=== PATIENT | male | born 1980 | race Caucasian/White ===

== ENCOUNTER 2021-05-16 19:23 | Emergency (ER) | payer OTHER, SELFPAY ==
[2021-05-16 19:38] VITALS: BP 111/54; PULSE 92; RESP 18; TEMP 37.1; O2SAT 97; BMI 35.2
[2021-05-16 20:21] LABS: IDNOW Serial# 08D9AD1C
[2021-05-16 20:22] LABS: Influenza A Positive (Negative); Influenza B2 Negative (Negative)
[2021-05-16 20:23] LABS: COVID-19 Test Negative (Negative); IDNOW Serial# 16C4AD1C
--- NOTE | 2021-05-16 21:23 | ED.GENADULT ---
HPI - General Adult General Chief complaint: General Medical Stated complaint: chills, fever, headache Time Seen by Provider: 05/16/21 21:14 Source: patient Mode of arrival: ambulatory Limitations: no limitations History of Present Illness HPI narrative: 40-year-old male presents to ED for 1 day of fever, headache, chills, and body aches. Patient states daughter also having similar symptoms. Patient denies any chest pain or shortness of breath. Patient had COVID 2 months ago. Related Data Previous Rx's Medication Instructions Recorded oseltamivir 75 mg capsule (Tamiflu) 75 mg PO BID 5 Days #10 cap 05/16/21 Allergies Allergy/AdvReac Type Severity Reaction Status Date / Time No Known Allergies Allergy Verified 05/16/21 19:42 Review of Systems Review of Systems: Headache, fever, and chills. Yes all other systems are reviewed and are negative [facility] Past Medical History Medical History (Updated 05/17/21 @ 00:00 by Background Daemon) Asthma Social History Social History Advance Directives: No Advance Directives Information Provided: Yes Physical Exam ED Vital Signs: Vital Signs - 24 hr 05/16/21 19:38 Temperature 98.8 F Pulse Rate 92 Respiratory Rate 18 Blood Pressure 111/54 L Pulse Oximetry 97 BMI result Body Mass Index 35.2 Const General: cooperative, healthy appearing, comfortable, no acute distress, well developed, alert, awake and Physically active Orientation/consciousness: patient oriented x3 HENMT Head: Yes normal to inspection, Yes No palpable skull fracture present, Yes normocephalic and Yes atraumatic Eyes General: appearance normal, both eyes and all related structures Neck Neck: Yes normal visual inspection, Yes full ROM, Yes no lymphadenopathy, Yes no meningeal signs, Yes trachea midline, Yes supple, No anterior neck swelling and No tender Chest Chest palpation & inspection: normal inspection of the chest and normal palpation of entire chest wall Resp Effort & Inspection: normal respiratory effort and able to speak in complete sentences Auscultation: clear to auscultation bilaterally Cardio Jugular venous distension: no JVD Heart sounds: S1 normal heart sound present and S2 normal heart sound present GI Inspection: Yes normal to inspection and No abdominal wall ecchymosis Palpation (GI): Soft to palpation, not firm, nontender, no guarding and not rigid General: No CVA tenderness and Yes no CVA tenderness Back/Spine/Pelvis Back: no CVA tenderness, No CVA tenderness and No back tenderness Skin General skin exam: no rashes or lesions noted and elasticity normal Neuro General: patient oriented x3, gait normal, no meningeal signs and CN's II-XI intact bilaterally Cranial nerves: Yes CN's II-XII intact bilaterally Extrem General: Yes normal to inspection and Yes full ROM Psych Appearance: grossly normal, well kempt and not disheveled Course Course Course Narrative: Influenza swab ordered. Reevaluation(s) Reevaluation #1: Patient came back positive for influenza. Patient will be discharged on Tamiflu. Patient informed to return to the ED does any chest pain, shortness of breath, any other concerning symptoms. Time: 21:36 Medical Decision Making MDM Narrative Medical decision making narrative: Influenza Lab Data Labs: Lab Results 05/16/21 05/16/21 Range/Units 19:56 19:56 COVID-19 (REBECCA) Negative (Negative) COVID-19 Clin Com See Note Influenza Type A (ERIKA) Positive A (Negative) Influenza Type B (ERIKA) Negative (Negative) Influenza A & B Note See Note Discharge Plan Discharge Clinical Impression: Influenza A Patient Disposition: Home, Self-Care Instructions: Influenza (ED) Additional Instructions: Due to came back positive for influenza. You will need couple days off to rest. Recommend drinking plenty of water and orange juice. Recommend broth, toast, oatmeal, and applesauce. Recommend Tylenol/Motrin for pain/fever relief. He will be discharged with Tamiflu. Return to the ED immediately for any chest pain, shortness of breath, weakness, dizziness, coughing up blood, or any other concerning symptoms. Please follow-up with primary care provider. Prescriptions: New oseltamivir [Tamiflu] 75 mg capsule 75 mg PO BID 5 Days Qty: 10 0RF Stand Alone Forms: Work/School Release Interventions: ED Discharge Assessment Last Done: 05/16/21 21:47 Discharge Date/Time: 05/16/21 21:55 Print Language: Hungarian
== END 2021-05-16 21:55 | disposition home or self-care (01) ==
PROVIDERS: Emergency Provider Internal Medicine
DX: J11.1 Influenza due to unidentified influenza virus with other respiratory manifestations (principal); Z20.822 Contact with and (suspected) exposure to COVID-19
CPT/HCPCS: 87502; 87635; 99283